=== PATIENT | female | born 1960 | race African-American/Black ===

== ENCOUNTER 2017-02-04 17:45 | Emergency (ER) | payer OTHER ==
[~2017-02-04] VITALS: Ht 167.6 cm; Wt 117.6 kg
[~2017-02-04 17:45] MED LIST: DICL50TA2 PO; EPIP0.3I IM; FURO1TAB62 PO; GABA600T PO; Glucose test strips; HYDR200T42 PO; LISI2.5T3 PO; LORC10TA24 PO; MELO-1 PO; METF1000 PO; PHEN1TAB84 PO; ROBA750T PO; TRAM50TA PO; [UNRECOGNIZED DRUG - SUPPLY]; glucometer
[2017-02-04 19:16] VITALS: BP 132/79; PULSE 101; RESP 20; TEMP 98.5; O2SAT 97
[2017-02-04] MEDS ORDERED: ADIP37.55 PO (19:24)
[2017-02-04] MEDS ORDERED: AMIT100T2 PO (19:25)
[2017-02-04] MEDS ORDERED: AMIT10TA6 PO (19:25)
[2017-02-04] MEDS ORDERED: PLAQ200T PO (19:25)
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
[2017-02-04] MEDS ORDERED: DEXAMETHASONE SOD PHOS 4 MG/ML VIAL IM ONE (20:30)
[2017-02-04] MEDS ORDERED: ORPHENADRINE INJ 60 MG/2 ML AMP IM ONE (20:30)
[2017-02-04] MEDS ORDERED: ROBA750T PO (20:31)
[2017-02-04] MEDS ORDERED: DICL50TA PO (20:31)
[2017-02-22] MEDS ORDERED: METF1000 PO (14:01)
[2017-02-22] MEDS ORDERED: MELO-1 PO (14:01)
[2017-03-21] MEDS ORDERED: ROBA750T PO (11:24)
[2017-04-06] MEDS ORDERED: ROBA750T PO (16:57)
== END 2017-02-04 20:40 | disposition home or self-care (01) ==
LOC: PHEFT 17:45
DX: M54.16 Radiculopathy, lumbar region (principal); G89.29 Other chronic pain
CPT/HCPCS: 96372; 99284; J1100; J2360

== ENCOUNTER → 2017-02-23 | Outpatient (CLI) | payer OTHER ==
[~2017-02-23] VITALS: Ht 167.6 cm; Wt 114.5 kg
[~2017-02-23] MED LIST changes: +ADIP37.55 PO; +AMIT10TA6 PO; +CHLORHEXIDINE GLUCONATE 2 % 1 PACK (2 CLOTHS) TOPICAL PRN; -DICL50TA2 PO; +DO NOT ADM ANY ANTICOAGULANT DRUGS PRN; -EPIP0.3I IM; -FURO1TAB62 PO; -Glucose test strips; -HYDR200T42 PO; +INSULIN HUMAN REGULAR 1,000 UNITS/10 ML VIAL SQ PRN; +LACTATED RINGER'S 1000 ML IV PRN; -LISI2.5T3 PO; -LORC10TA24 PO; +METOPROLOL TARTRATE 25 MG TAB PO PRN; -PHEN1TAB84 PO; +PLAQ200T PO; +POVIDONE IODINE 5% (ANTISEPSIS KIT) 4 APPLICATIONS EACH NARE PRN; +PROPOFOL 200 MG/20 ML AMP IV ONE; +SODIUM CHLORID 0.9% 500 ML IV PRN; -TRAM50TA PO; -[UNRECOGNIZED DRUG - SUPPLY]; -glucometer
[2017-02-23 09:05] VITALS: BP 151/84; PULSE 71; RESP 18; TEMP 97.7; O2SAT 97
--- NOTE | 2017-02-23 12:33 | GIPROC ---
[facility] [address] [facility]. [facility], [address] COLONOSCOPY PROCEDURE REPORT EXAM DATE: 02/23/2017 PATIENT NAME: Randa Cabrera MR #: [id number] BIRTHDATE: 1960 ENDOSCOPIST: Derek Joy MD ORDER #: [id number] TWISTER DOFFER: Josep Castillo and Khushboo Alvarez STATUS: outpatient INDICATIONS: The patient is a 56 yr old female here for a colonoscopy due to personal history of adenomatous polyps. PROCEDURE PERFORMED: colonoscopy MEDICATIONS: Per Anesthesia. PREP QUALITY: excellent ESTIMATED BLOOD LOSS: None CONSENT: The patient understands the risks and benefits of the procedure and understands that these risks include, but are not limited to: sedation, allergic reaction, infection, perforation and/or bleeding. Alternative means of evaluation and treatment include, among others: physical exam, x-rays, and/or surgical intervention. The patient elects to proceed with this endoscopic procedure. medical equipment was checked for proper function. Hand hygiene and appropriate measures for infection prevention was taken. After the risks, benefits and alternatives of the procedure were thoroughly explained, Informed consent was verified, confirmed and timeout was successfully executed by the treatment team. A digital exam was performed and revealed no abnormalities of the rectum The Pentax [id number] endoscope was introduced through the anus and advanced to the cecum, which was identified by both the appendix and ileocecal valve. The instrument was then slowly withdrawn as the colon was fully examined. COLON FINDINGS: The colonic mucosa appeared normal. Retroflexion was performed and was normal The scope was then completely withdrawn from the patient and the procedure terminated. PROCEDURE WITHDRAWAL TIME:7minutes ADVERSE EVENTS: There were no complications. IMPRESSIONS: Normal exam. RECOMMENDATIONS: Resume prior diet/medications. RECALL: Return 5 years Colonoscopy Derek Joy MD eSigned: Derek Joy MD 02/23/2017 12:33 PM cc:
[2017-02-23 12:35] VITALS: BP 132/84; PULSE 74; RESP 18; TEMP 97.7; O2SAT 97
--- NOTE | 2017-02-23 16:45 | EKG ---
Date Performed: 02/23/2017 Time Performed: 09:40:11 PTAGE: 56 years EKG: Sinus rhythm POSSIBLE LEFT ATRIAL ENLARGEMENT LOW QRS VOLTAGE IN PRECORDIAL LEADS POSSIBLE RIGHT VENTRICULAR COND UCTION DELAY BORDERLINE ECG NO PREVIOUS TRACING DOCTOR: Mackenzie Frost Interpretating Date/Time 02/23/2017 16:40:00
== END ==
LOC: HEND 08:59
DX: Z12.11 Encounter for screening for malignant neoplasm of colon (principal); Z86.010 Personal history of colon polyps; R94.31 Abnormal electrocardiogram [ECG] [EKG]
CPT/HCPCS: 00810; 45378; 93005; J7120

== ENCOUNTER 2017-05-30 18:33 | Emergency (ER) | payer OTHER ==
[~2017-05-30 18:33] MED LIST changes: -CHLORHEXIDINE GLUCONATE 2 % 1 PACK (2 CLOTHS) TOPICAL PRN; -DO NOT ADM ANY ANTICOAGULANT DRUGS PRN; -INSULIN HUMAN REGULAR 1,000 UNITS/10 ML VIAL SQ PRN; -LACTATED RINGER'S 1000 ML IV PRN; -MELO-1 PO; +MELO15TA20 PO; -METOPROLOL TARTRATE 25 MG TAB PO PRN; -POVIDONE IODINE 5% (ANTISEPSIS KIT) 4 APPLICATIONS EACH NARE PRN; -PROPOFOL 200 MG/20 ML AMP IV ONE; -SODIUM CHLORID 0.9% 500 ML IV PRN
[2017-05-30 18:34] VITALS: BP 160/90; PULSE 102; RESP 18; TEMP 98.8; O2SAT 99
[2017-05-30] MEDS ORDERED: AMIT25TA9 PO (19:47)
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
[2017-05-30] MEDS ORDERED: ORPHENADRINE INJ 60 MG/2 ML AMP IM ONE (20:45)
[2017-05-30] MEDS ORDERED: KETOROLAC TROMETHAMINE 60 MG/2 ML (IM) VIAL IM ONE (20:45)
== END 2017-05-30 21:27 | disposition home or self-care (01) ==
LOC: NEPK 18:33
DX: M54.31 Sciatica, right side (principal); I10 Essential (primary) hypertension; E78.00 Pure hypercholesterolemia, unspecified; J45.909 Unspecified asthma, uncomplicated; Z79.899 Other long term (current) drug therapy; Z88.0 Allergy status to penicillin; Z88.5 Allergy status to narcotic agent; Z88.2 Allergy status to sulfonamides; Z88.8 Allergy status to other drugs, medicaments and biological substances
CPT/HCPCS: 96372; 99284; J1885; J2360

== ENCOUNTER 2017-09-30 18:11 | Emergency (ER) | payer OTHER ==
[~2017-09-30] VITALS: Ht 167.6 cm; Wt 125.5 kg
[~2017-09-30 18:11] MED LIST changes: -AMIT10TA6 PO; +AMIT25TA9 PO; +LISI2.5T3 PO
[2017-09-30 18:21] VITALS: BP 149/79; PULSE 149; RESP 18; TEMP 98.1; O2SAT 100
== END 2017-09-30 19:38 | disposition left against medical advice (07) ==
LOC: NED 18:11
DX: R10.9 Unspecified abdominal pain (principal); Z53.21 Procedure and treatment not carried out due to patient leaving prior to being seen by health care provider
CPT/HCPCS: 99281

== ENCOUNTER 2017-09-30 19:04 | Emergency (ER) | payer OTHER ==
[~2017-09-30] VITALS: Ht 167.6 cm; Wt 126.8 kg
[2017-09-30 19:07] VITALS: BP 160/94; PULSE 100; RESP 18; TEMP 98.6; O2SAT 99
[2017-09-30] MEDS ORDERED: SODIUM CHLOR 0.9% 1000 ML INJ 1,000 ML IV SCH (19:23)
[2017-09-30] MEDS ORDERED: ONDANSETRON HCL 4 MG/2 ML VIAL IVP ONE (19:30)
[2017-09-30] MEDS ORDERED: MORPHINE SULFATE 2 MG/ML SYRINGE IV PUSH ONE (19:30)
[2017-09-30] MEDS ORDERED: SODIUM CHLORIDE 0.9% FLUSH 10 ML FLUSH IV FLUSH PRN (19:30)
--- NOTE | 2017-09-30 19:33 | PD ---
HPI Chief Complaint: flank pain Time Seen by Provider: 19:15 Travel History International Travel<30 days: No Contact w/Intl Traveler<30days: No Traveled to known affect area: No History of Present Illness HPI Patient is a 56-year-old female presents the emergency room with complaints of right-sided flank pain. Patient reports that she has history of chronic low back pain, patient reports that for the past week, she has been having pain to the right groin radiates to her right flank. Patient reports that her symptoms have been intermittent in nature, reports today, symptoms have increased. Reports that when she has these symptoms, symptoms are moderate to severe in nature. Patient denies any history of kidney stones, denies any dysuria, hematuria, urinary urgency or frequency. Patient reports history of oophorectomy with bilateral salpingectomy in the past. Denies any fever or chills, denies any nausea or vomiting, denies any constipation diarrhea. Denies any trauma to the abdomen. PFSH Past Medical History Blood Disorders: No Cancer: No Cardiovascular Problems: Yes (HTN) High Cholesterol: Yes Chemotherapy: No Diabetes: Yes Diminished Hearing: No Endocrine: No Gastrointestinal Disorders: Yes GERD: Yes Genitourinary: No Headaches: Yes Hepatitis: No Hiatal Hernia: No Hypertension: Yes Immune Disorder: No Musculoskeletal: Yes (chronic back pain, OA) Neurologic: Yes Psychiatric: No Reproductive: No Respiratory: Yes (ASTHMA) Immunizations Current: Yes Migraines: Yes Radiation Therapy: No Thyroid Disease: No Menopausal: Yes : 2 Para: 1 Past Surgical History Abdominal Surgery: No AICD: No Arteriovenous Shunt: No Cardiac Surgery: No Ear Surgery: No Endocrine Surgery: No Eye Surgery: No Genitourinary Surgery: No Gynecologic Surgery: Yes (PARTIAL HYSTERECTOMY) Hysterectomy: Yes Insulin Pump: No Joint Replacement: No Oral Surgery: No Pacemaker: No Thoracic Surgery: No Other Surgery: Yes (BILATERAL KNEE ORTHOSCOPIC SURGERY) Social History Alcohol Use: No Tobacco Use: No Substance Use: No Allergies-Medications (Allergen,Severity, Reaction): Coded Allergies: acetaminophen (Verified Allergy, Severe, 06/17/17) divalproex sodium (Verified Allergy, Severe, 06/17/17) duloxetine (Verified Allergy, Severe, Anaphylaxis, 06/17/17) hydrocodone (Verified Allergy, Severe, 06/17/17) propoxyphene (Verified Allergy, Severe, 06/17/17) sumatriptan (Verified Allergy, Severe, "CAN'T TAKE", 06/17/17) zolmitriptan (Verified Allergy, Severe, NEURO DEFICITS, 06/17/17) tramadol (Verified Allergy, Intermediate, nausea and vomiting, 06/17/17) sulfamethoxazole (Verified Allergy, Mild, 06/17/17) trimethoprim (Verified Allergy, Mild, 06/17/17) penicillin G (Verified Adverse Reaction, Mild, PT SAID IT DOES NOT WORK FOR HER, 06/17/17) Uncoded Allergies: EXCEDRIN (Allergy, Severe, STOMACH UPSET, 02/09/12) PENICILLIN (Allergy, Unknown, told her body rejects penicillin, 02/23/17) Reported Meds & Prescriptions Reported Meds & Active Scripts Active Robaxin (Methocarbamol) 750 Mg Tab 750 Mg PO TID Meloxicam 15 Mg Tab 15 Mg PO DAILY Metformin (Metformin HCl) 1,000 Mg Tab 1,000 Mg PO DAILY With a meal Adipex-P (Phentermine HCl) 37.5 Mg Tab 1 Tab PO DAILY Gabapentin 600 Mg Tab 900 Mg PO HS Reported Lisinopril 2.5 Mg Tab 2.5 Mg PO DAILY Amitriptyline (Amitriptyline HCl) 25 Mg Tab 25 Mg PO HS Plaquenil (Hydroxychloroquine Sulfate) 200 Mg Tab 200 Mg PO BID Take with food Review of Systems General / Constitutional: No: Fever, Chills Eyes: No: Visual changes HENT: No: Headaches Cardiovascular: No: Chest Pain or Discomfort Respiratory: No: Shortness of Breath Gastrointestinal: Positive: Nausea, Vomiting, Abdominal Pain Genitourinary: Positive: Flank Pain, No: Dysuria Musculoskeletal: No: Pain Skin: No Rash Neurologic: No: Weakness Psychiatric: No: Depression Endocrine: No: Polydipsia Hematologic/Lymphatic: No: Easy Bruising Physical Exam Narrative GENERAL: moderate distress SKIN: Focused skin assessment warm/dry. HEAD: Atraumatic. Normocephalic. EYES: Pupils equal and round. No scleral icterus. No injection or drainage. ENT: No nasal bleeding or discharge. Mucous membranes pink and moist. NECK: Trachea midline. No JVD. CARDIOVASCULAR: Regular rate and rhythm. No murmur appreciated. RESPIRATORY: No accessory muscle use. Clear to auscultation. Breath sounds equal bilaterally. GASTROINTESTINAL: Abdomen soft, mild tenderness to RLQ, nondistended. Hepatic and splenic margins not palpable. MUSCULOSKELETAL: No obvious deformities. No clubbing. No cyanosis. No edema. Right sided flank pain NEUROLOGICAL: Awake and alert. No obvious cranial nerve deficits. Motor grossly within normal limits. Normal speech. PSYCHIATRIC: Appropriate mood and affect; insight and judgment normal. Data Data Last Documented VS Vital Signs Date Time Temp Pulse Resp B/P (MAP) Pulse Ox O2 Delivery O2 Flow Rate FiO2 09/30/17 20:10 89 18 131/64 (86) 98 Room Air 09/30/17 19:07 98.6 Orders Orders Complete Blood Count With Diff (09/30/17 19:23) Comprehensive Metabolic Panel (09/30/17:) Lipase (09/30/17:) Prothrombin Time / Inr (Pt) (09/30/17:23) Act Partial Throm Time (Ptt) (09/30/17:23) Urinalysis - C+S If Indicated (09/30/17:23) Ct Abd/Pel W/O Iv Contrast (09/30/17 19:23) Iv Access Insert/Monitor (09/30/17 19:23) Ecg Monitoring (09/30/17:23) Oximetry (09/30/17:23) NPO (09/30/17:23) Ondansetron Inj (Zofran Inj) (09/30/17 19:30) Sodium Chlor 0.9% 1000 Ml Inj (Ns 1000 M (09/30/17 19:23) Sodium Chloride 0.9% Flush (Ns Flush) (09/30/17 19:30) Morphine Inj (Morphine Inj) (09/30/17 19:30) Labs Laboratory Tests Test 09/30/17 19:40 White Blood Count 7.2 TH/MM3 Red Blood Count 4.34 MIL/MM3 Hemoglobin 11.8 GM/DL Hematocrit 36.3 % Mean Corpuscular Volume 83.7 FL Mean Corpuscular Hemoglobin 27.3 PG Mean Corpuscular Hemoglobin Concent 32.6 % Red Cell Distribution Width 14.6 % Platelet Count 280 TH/MM3 Mean Platelet Volume 8.2 FL Neutrophils (%) (Auto) 50.5 % Lymphocytes (%) (Auto) 34.6 % Monocytes (%) (Auto) 8.2 % Eosinophils (%) (Auto) 4.1 % Basophils (%) (Auto) 2.6 % Neutrophils # (Auto) 3.6 TH/MM3 Lymphocytes # (Auto) 2.5 TH/MM3 Monocytes # (Auto) 0.6 TH/MM3 Eosinophils # (Auto) 0.3 TH/MM3 Basophils # (Auto) 0.2 TH/MM3 CBC Comment DIFF FINAL Differential Comment Prothrombin Time 9.7 SEC Prothromb Time International Ratio 1.0 RATIO Activated Partial Thromboplast Time 24.8 SEC Urine Color YELLOW Urine Turbidity CLEAR Urine pH 6.0 Urine Specific [place] GREATER/EQUAL 1.030 Urine Protein NEG mg/dL Urine Glucose (UA) NEG mg/dL Urine Ketones TRACE mg/dL Urine Occult Blood NEG Urine Nitrite NEG Urine Bilirubin NEG Urine Urobilinogen 0.2 MG/DL Urine Leukocyte Esterase NEG Urine RBC 0-2 /hpf Urine WBC 3-5 /hpf Urine Squamous Epithelial Cells > 8 /hpf Urine Bacteria FEW /hpf Microscopic Urinalysis Comment CULT NOT INDICATED Blood Urea Nitrogen 17 MG/DL Creatinine 1.10 MG/DL Random Glucose 136 MG/DL Total Protein 7.5 GM/DL Albumin 3.4 GM/DL Calcium Level 8.6 MG/DL Alkaline Phosphatase 130 U/L Aspartate Amino Transf (AST/SGOT) 15 U/L Alanine Aminotransferase (ALT/SGPT) 22 U/L Total Bilirubin 0.2 MG/DL Sodium Level 139 MEQ/L Potassium Level 3.9 MEQ/L Chloride Level 104 MEQ/L Carbon Dioxide Level 29.5 MEQ/L Anion Gap 6 MEQ/L Estimat Glomerular Filtration Rate 62 ML/MIN Lipase 133 U/L [facility] Medical Decision Making Medical Screen Exam Complete: Yes Emergency Medical Condition: Yes Medical Record Reviewed: Yes Interpretation(s) Vital Signs Date Time Temp Pulse Resp B/P (MAP) Pulse Ox O2 Delivery O2 Flow Rate FiO2 09/30/17 19:07 98.6 100 18 160/94 (116) 99 Differential Diagnosis Kidney stone, appendicitis, UTI, pyelonephritis, muscle skeletal pain Narrative Course 56 year old female who presents to the ER with c/o of intermittent right sided groin pain which radiates to her flank. Patient reports that onset of symptoms have been ongoing for past week. During the course of the patients emergency department visit, the patients history, examination, and differential diagnosis were reviewed with the patient. The patient was placed on a compliance monitor with oximetry and frequent blood pressure monitoring. The patient had an IV access obtained and blood work sent for analysis. The patient was initially provided IVF, IVF morphine (patient tolerated this in the past), IV zofran. The patients laboratory studies were reviewed and remarkable for: Laboratory Tests Test 09/30/17 19:40 White Blood Count 7.2 TH/MM3 (4.0-11.0) Red Blood Count 4.34 MIL/MM3 (4.00-5.30) Hemoglobin 11.8 GM/DL (11.6-15.3) Hematocrit 36.3 % (35.0-46.0) Mean Corpuscular Volume 83.7 FL (80.0-100.0) Mean Corpuscular Hemoglobin 27.3 PG (27.0-34.0) Mean Corpuscular Hemoglobin Concent 32.6 % (32.0-36.0) Red Cell Distribution Width 14.6 % (11.6-17.2) Platelet Count 280 TH/MM3 (150-450) Mean Platelet Volume 8.2 FL (7.0-11.0) Neutrophils (%) (Auto) 50.5 % (16.0-70.0) Lymphocytes (%) (Auto) 34.6 % (9.0-44.0) Monocytes (%) (Auto) 8.2 % (0.0-8.0) Eosinophils (%) (Auto) 4.1 % (0.0-4.0) Basophils (%) (Auto) 2.6 % (0.0-2.0) Neutrophils # (Auto) 3.6 TH/MM3 (1.8-7.7) Lymphocytes # (Auto) 2.5 TH/MM3 (1.0-4.8) Monocytes # (Auto) 0.6 TH/MM3 (0-0.9) Eosinophils # (Auto) 0.3 TH/MM3 (0-0.4) Basophils # (Auto) 0.2 TH/MM3 (0-0.2) CBC Comment DIFF FINAL Differential Comment Prothrombin Time 9.7 SEC (9.8-11.6) Prothromb Time International Ratio 1.0 RATIO Activated Partial Thromboplast Time 24.8 SEC (24.3-30.1) Urine Color YELLOW (YELLW/STRAW) Urine Turbidity CLEAR (CLEAR) Urine pH 6.0 (5.0-8.5) Urine Specific [place] GREATER/EQUAL 1.030 Urine Protein NEG mg/dL (NEG-TRACE) Urine Glucose (UA) NEG mg/dL (NEG) Urine Ketones TRACE mg/dL (NEG) Urine Occult Blood NEG (NEG) Urine Nitrite NEG (NEG) Urine Bilirubin NEG (NEG) Urine Urobilinogen 0.2 MG/DL (LESS THAN Urine Leukocyte Esterase NEG (NEG) Urine RBC 0-2 /hpf (0-3) Urine WBC 3-5 /hpf (0-5) Urine Squamous Epithelial Cells > 8 /hpf (0-5) Urine Bacteria FEW /hpf (NONE) Microscopic Urinalysis Comment CULT NOT INDICATED Blood Urea Nitrogen 17 MG/DL (7-18) Creatinine 1.10 MG/DL (0.50-1.00) Random Glucose 136 MG/DL (74-106) Total Protein 7.5 GM/DL (6.4-8.2) Albumin 3.4 GM/DL (3.4-5.0) Calcium Level 8.6 MG/DL (8.5-10.1) Alkaline Phosphatase 130 U/L (45-117) Aspartate Amino Transf (AST/SGOT) 15 U/L (15-37) Alanine Aminotransferase (ALT/SGPT) 22 U/L (10-53) Total Bilirubin 0.2 MG/DL (0.2-1.0) Sodium Level 139 MEQ/L (136-145) Potassium Level 3.9 MEQ/L (3.5-5.1) Chloride Level 104 MEQ/L (98-107) Carbon Dioxide Level 29.5 MEQ/L (21.0-32.0) Anion Gap 6 MEQ/L (5-15) Estimat Glomerular Filtration Rate 62 ML/MIN (>89) Lipase 133 U/L (73-393) Radiology studies were reviewed and remarkable for: Last Impressions Abdomen/Pelvis CT 09/30/171922 Signed Impressions: Service Date/Time: Saturday, September 30, 2017 19:46 - CONCLUSION: Negative for an acute process. Probable left renal cyst incompletely evaluated. Michael Alexander MD FACR Labs are reviewed, UA with trace ketones. CT of abdomen and pelvis shows 1 cm low-density lesion in the midportion of the kidney probably a cyst, there is no acute process seen. Patient was reevaluated, patient is feeling much better at this time. Abdomen is soft, nontender, nondistended, no peritoneal signs. I reviewed all labs and all studies with patient in detail, there is no obvious etiology for patient's abdominal pain. Signs and symptoms of acute abdomen reviewed with patient, she will return to emergency room as needed. A copy of her CT report was given to her discharge and she will need to follow-up with all incidental findings from today. Diagnosis Primary Impression: Abdominal pain Qualified Codes: R10.31 - Right lower quadrant pain Patient Instructions: General Instructions Additional Instructions: Please follow up with your primary care doctor in 2-3 days Return to the ER if symptoms worsen or progress or if you develop any fever or chills Return to the ER as needed Disposition: 01 DISCHARGE HOME Condition: Stable Alexandria Stovall DO Sep 30, 2017 19:33
[2017-09-30 19:44] LABS: BILIRUBIN, URINE NEG (NEG); BLOOD, URINE NEG (NEG); GLUCOSE,URINE NEG (NEG); KETONE, URINE TRACE mg/dL (NEG); NITRITE,URINE NEG (NEG); URINE COLOR YELLOW (YELLW/STRAW); URINE LEUKOCYTE ESTERASE NEG (NEG)
[2017-09-30 19:47] LABS: AUTOMATED NEUTROPHIL # 3.6 TH/MM3 (1.8-7.7); BASOPHIL # 0.2 TH/MM3 (0-0.2); BASOPHIL % 2.6 % (0.0-2.0); EOSINOPHIL # 0.3 TH/MM3 (0-0.4); EOSINOPHIL % 4.1 % (0.0-4.0); HEMATOCRIT 36.3 % (35.0-46.0); HEMOGLOBIN 11.8 GM/DL (11.6-15.3); LYMPH % 34.6 % (9.0-44.0); LYMPHOCYTE # 2.5 TH/MM3 (1.0-4.8); MEAN CELL VOLUME 83.7 FL (80.0-100.0); MEAN CORPUSCULAR HEMOGLOBIN 27.3 PG (27.0-34.0); MEAN CORPUSCULAR HGB CONC 32.6 % (32.0-36.0); MEAN PLATELET VOLUME 8.2 FL (7.0-11.0); MONO % 8.2 % (0.0-8.0); MONOCYTE # 0.6 TH/MM3 (0-0.9); NEUT % 50.5 % (16.0-70.0); PLATELET COUNT 280 TH/MM3 (150-450); RED BLOOD COUNT 4.34 MIL/MM3 (4.00-5.30); RED CELL DISTRIBUTION WIDTH 14.6 % (11.6-17.2); WHITE BLOOD COUNT 7.2 TH/MM3 (4.0-11.0)
[2017-09-30 19:53] LABS: BACTERIA, URINE FEW /hpf; CHLORIDE 104 MEQ/L (98-107); RBC, URINE 0-2 /hpf (0-3); SODIUM (NA) 139 MEQ/L (136-145); SQUAMOUS EPITHELIAL CELL URINE > 8 /hpf (0-5)
[2017-09-30 19:56] LABS: CALCIUM 8.6 MG/DL (8.5-10.1)
[2017-09-30 19:57] LABS: ALBUMIN 3.4 GM/DL (3.4-5.0); BICARBONATE 29.5 MEQ/L (21.0-32.0); BLOOD UREA NITROGEN 17 MG/DL (7-18); GLUCOSE,RANDOM 136 MG/DL (74-106)
[2017-09-30 19:58] LABS: PROTHROMBIN TIME - PATIENT 9.7 SEC (9.8-11.6)
[2017-09-30 20:00] LABS: ALT (GPT) 22 U/L (10-53); AST (GOT) 15 U/L (15-37); GLOMERULAR FILTRATION RATE 62 ML/MIN (>89)
[2017-09-30 20:01] LABS: TOTAL BILIRUBIN ADULT 0.2 MG/DL (0.2-1.0); TOTAL PROTEIN 7.5 GM/DL (6.4-8.2)
[2017-09-30 20:03] LABS: ALKALINE PHOSPHATASE 130 U/L (45-117)
[2017-09-30 20:10] VITALS: BP 131/64; PULSE 89; RESP 18; O2SAT 98
--- NOTE | 2017-09-30 20:42 | RADRPT ---
EXAM DATE/TIME: 09/30/2017 19:46 [facility] COMPARISON: No previous studies available for comparison. INDICATIONS : Right flank pain. ORAL CONTRAST: No oral contrast ingested. RADIATION DOSE: 27.10 CTDIvol (mGy) MEDICAL HISTORY : Hypertension. Gastroesophageal reflux disease. Diabetes. IBS. SURGICAL HISTORY : Hysterectomy. ENCOUNTER: Initial ACUITY: 1 week PAIN SCALE: 7/10 LOCATION: Right flank TECHNIQUE: Volumetric scanning of the abdomen and pelvis was performed. Using automated exposure control and ad justment of the mA and/or kV according to patient size, radiation dose was kept as low as reasonably achievable to obtain optimal diagnostic quality images. DICOM format image data is available electro nically for review and comparison. FINDINGS: LOWER LUNGS: The visualized lower lungs are clear. LIVER: Homogeneous density without lesion. There is no dilation of the biliary tree. No calcified gallston es. SPLEEN: Normal size without lesion. PANCREAS: Within normal limits. KIDNEYS: Normal in size and shape. 1 cm low-density lesion midportion left kidney probably cyst incompletely evaluated on today's study. ADRENAL GLANDS: Normal adrenal glands VASCULAR: No significant calcification BOWEL/MESENTERY: No inflammatory changes ABDOMINAL WALL: Within normal limits. RETROPERITONEUM: There is no lymphadenopathy. BLADDER: No wall thickening. INGUINAL: No adenopathy MUSCULOSKELETAL: Mild degenerative changes CONCLUSION: Negative for an acute process. Probable left renal cyst incompletely evaluated. Michael Alexander MD FACR on September 30, 2017 at 20:37 Board Certified Radiologist. This report was verified electronically.
== END 2017-09-30 21:08 | disposition home or self-care (01) ==
LOC: PHED 19:04
DX: R10.31 Right lower quadrant pain (principal); R11.2 Nausea with vomiting, unspecified; M54.5 Low back pain; G89.29 Other chronic pain; I10 Essential (primary) hypertension; E78.00 Pure hypercholesterolemia, unspecified; E11.9 Type 2 diabetes mellitus without complications; K21.9 Gastro-esophageal reflux disease without esophagitis; J45.909 Unspecified asthma, uncomplicated
CPT/HCPCS: 74176; 80053; 81001; 83690; 85025; 85610; 85730; 96361; 96374; 96375; 99284; J2270; J2405; J7030

== ENCOUNTER 2017-11-03 17:41 | Observation (INO) | payer OTHER ==
[~2017-11-03] VITALS: Ht 167.6 cm; Wt 130.6 kg
[2017-11-03 17:43] VITALS: BP 142/98; PULSE 96; RESP 20; TEMP 98.5; O2SAT 98
--- NOTE | 2017-11-03 18:05 | PD ---
HPI Chief Complaint: Chest Pain Time Seen by Provider: 17:51 Travel History International Travel<30 days: No Contact w/Intl Traveler<30days: No Traveled to known affect area: No History of Present Illness HPI 56 years old female complains of chest pressure, shortness of breath, lower extremity swelling. Patient noticed increasing bilateral lower extremity swelling for the past 3 weeks. Patient states that she started having shortness of breath for the past 2 days. Patient states that she has substernal chest pressure intermittently for the past 2 weeks. Patient states that the pressure radiates to the neck. Patient states that the chest pressure is not associate with exertion. Patient denies any coughing congestion. Patient denies nausea diaphoresis. Patient denies any fever chills. Patient denies history of CAD. Patient denies history of CHF. Patient has history of hypertension, type 2 diabetes. Patient denies history of hyperlipidemia. Patient is non-smoker. Patient has family history of heart disease. Patient also has history of mixed connective tissue disease. Patient on Plaquenil. On a scale of 1-10 pressures of 4. PFSH Past Medical History Blood Disorders: No Cancer: No Cardiovascular Problems: Yes (HTN) High Cholesterol: Yes Chemotherapy: No Diabetes: Yes (PRE) Diminished Hearing: No Endocrine: No Gastrointestinal Disorders: Yes (IBS, GERD) GERD: Yes Genitourinary: No Headaches: Yes Hepatitis: No Hiatal Hernia: No Hypertension: Yes Immune Disorder: No Musculoskeletal: Yes (chronic back pain, OA) Neurologic: Yes Psychiatric: No Reproductive: No Respiratory: Yes (ASTHMA) Immunizations Current: Yes Migraines: Yes Radiation Therapy: No Thyroid Disease: No ?: Not Menopausal: Yes : 2 Para: 1 Past Surgical History Abdominal Surgery: No AICD: No Arteriovenous Shunt: No Cardiac Surgery: No Ear Surgery: No Endocrine Surgery: No Eye Surgery: No Genitourinary Surgery: No Gynecologic Surgery: Yes (PARTIAL HYSTERECTOMY) Hysterectomy: Yes Insulin Pump: No Joint Replacement: No Oral Surgery: No Pacemaker: No Thoracic Surgery: No Other Surgery: Yes (BILATERAL KNEE ARTHOSCOPIC SURGERY) Social History Alcohol Use: No Tobacco Use: No Substance Use: No Allergies-Medications (Allergen,Severity, Reaction): Coded Allergies: acetaminophen (Verified Allergy, Severe, 11/03/17) divalproex sodium (Verified Allergy, Severe, 11/03/17) duloxetine (Verified Allergy, Severe, Anaphylaxis, 11/03/17) hydrocodone (Verified Allergy, Severe, 11/03/17) propoxyphene (Verified Allergy, Severe, 11/03/17) sumatriptan (Verified Allergy, Severe, "CAN'T TAKE", 11/03/17) zolmitriptan (Verified Allergy, Severe, NEURO DEFICITS, 11/03/17) tramadol (Verified Allergy, Intermediate, nausea and vomiting, 11/03/17) sulfamethoxazole (Verified Allergy, Mild, 11/03/17) trimethoprim (Verified Allergy, Mild, 11/03/17) penicillin G (Verified Adverse Reaction, Mild, PT SAID IT DOES NOT WORK FOR HER, 11/03/17) Uncoded Allergies: EXCEDRIN (Allergy, Severe, STOMACH UPSET, 02/09/12) PENICILLIN (Allergy, Unknown, told her body rejects penicillin, 02/23/17) Reported Meds & Prescriptions Reported Meds & Active Scripts Active Robaxin (Methocarbamol) 750 Mg Tab 750 Mg PO TID Meloxicam 15 Mg Tab 15 Mg PO DAILY Metformin (Metformin HCl) 1,000 Mg Tab 1,000 Mg PO DAILY With a meal Gabapentin 600 Mg Tab 900 Mg PO HS Reported Lisinopril 2.5 Mg Tab 2.5 Mg PO DAILY Amitriptyline (Amitriptyline HCl) 25 Mg Tab 25 Mg PO HS Plaquenil (Hydroxychloroquine Sulfate) 200 Mg Tab 200 Mg PO BID Take with food Review of Systems General / Constitutional: No: Fever Eyes: No: Visual changes HENT: No: Headaches Cardiovascular: Positive: Chest Pain or Discomfort Respiratory: Positive: Shortness of Breath Gastrointestinal: No: Abdominal Pain Genitourinary: No: Dysuria Musculoskeletal: Positive: Edema, No: Pain Skin: No Rash Neurologic: No: Weakness Psychiatric: No: Depression Endocrine: No: Polydipsia Hematologic/Lymphatic: No: Easy Bruising Physical Exam Narrative GENERAL: Well-nourished, well-developed patient. SKIN: Focused skin assessment warm/dry. HEAD: Normocephalic. EYES: No scleral icterus. No injection or drainage. NECK: Supple, trachea midline. No JVD or lymphadenopathy. CARDIOVASCULAR: Regular rate and rhythm without murmurs, gallops, or rubs. RESPIRATORY: Breath sounds equal bilaterally. No accessory muscle use. GASTROINTESTINAL: Abdomen soft, non-tender, nondistended. MUSCULOSKELETAL: No cyanosis. Patient had +1-+2 pitting edema lower extremity. Mild tenderness on palpation bilateral calf area. No redness no heat. Negative Homans sign. BACK: Nontender without obvious deformity. No CVA tenderness. Neurologic exam normal. Data Data Last Documented VS Vital Signs Date Time Temp Pulse Resp B/P (MAP) Pulse Ox O2 Delivery O2 Flow Rate FiO2 11/03/17 17:57 20 97 Room Air 11/03/17 17:43 98.5 96 142/98 (113) Orders Orders Electrocardiogram (11/03/17 17:57) Complete Blood Count With Diff (11/03/17 17:57) Comprehensive Metabolic Panel (11/03/17 17:57) Creatine Kinase (Cpk) (11/03/17 17:57) Troponin I (11/03/17 17:57) B-Type Natriuretic Peptide (11/03/17 17:57) Prothrombin Time / Inr (Pt) (11/03/17 17:57) Act Partial Throm Time (Ptt) (11/03/17 17:57) Urinalysis - C+S If Indicated (11/03/17 17:57) Thyroid Stimulating Hormone (11/03/17 17:57) Chest, Single Ap (11/03/17 17:57) Iv Access Insert/Monitor (11/03/17 17:57) Ecg Monitoring (11/03/17 17:57) Oximetry (11/03/17 17:57) Us Leg Venous Doppler Bilat (11/03/17 17:57) MDM Medical Decision Making Medical Screen Exam Complete: Yes Emergency Medical Condition: Yes Interpretation(s) Last Impressions Lower Extremity Ultrasound 11/03/171756 Signed Impressions: Service Date/Time: October 18:08 - CONCLUSION: No DVT in either lower extremity. Vivek Lorenzo MD Chest X-Ray 11/03/171756 Signed Impressions: Service Date/Time: October 18:26 - CONCLUSION: 1. Slight interstitial prominence. Vivek Lorenzo MD Differential Diagnosis Differential diagnosis including musculoskeletal, angina, KS, PE, pneumothorax, dependent edema, CHF. Narrative Course 56 years old female with chest discomfort, shortness of breath, bilateral lower extremity edema. Skip Del Cid MD November 03, 2017 18:05
--- NOTE | 2017-11-03 18:38 | RADRPT ---
EXAM DATE/TIME: 11/03/2017 18:08 [facility] COMPARISON: No previous studies available for comparison. INDICATIONS : Bilateral leg swelling. MEDICAL HISTORY : Diabetic. Hypertension. SURGICAL HISTORY : Bilateral carpal tunnel. Bilateral arthroscopy knees. Partial hysterectomy. ENCOUNTER: Initial ACUITY: 2 weeks PAIN SCORE: 6/10 LOCATION: Bilateral leg. TECHNIQUE: Venous ultrasound of the left and right leg was performed from the inguinal ligament to the proximal calf. Real-time, color Doppler and spectral tracing, compression and augmentation techniques were us ed. FINDINGS: RIGHT LEG: There is normal compressibility of the deep venous system from the inguinal region to the proximal ca lf. No echogenic clot is seen in the lumen of the common femoral, femoral, popliteal, and posterior tibial veins. There is a normal response of the venous system to proximal and distal augmentation an d respiration. LEFT LEG: There is normal compressibility of the deep venous system from the inguinal region to the proximal ca lf. No echogenic clot is seen in the lumen of the common femoral, femoral, popliteal, and posterior tibial veins. There is a normal response of the venous system to proximal and distal augmentation an d respiration. CONCLUSION: No DVT in either lower extremity. Vivek Lorenzo MD on November 03, 2017 at 18:35 Board Certified Radiologist. This report was verified electronically.
--- NOTE | 2017-11-03 18:40 | RADRPT ---
EXAM DATE/TIME: 11/03/2017 18:26 [facility] COMPARISON: No previous studies available for comparison. INDICATIONS : Chest pain and tightness for four days with leg swelling. MEDICAL HISTORY : Hypertension. Gastroesophageal reflux disease. Diabetes. IBS. SURGICAL HISTORY : Hysterectomy. ENCOUNTER: Initial ACUITY: 4 - 6 days PAIN SCORE: 4/10 LOCATION: Bilateral chest FINDINGS: A single view of the chest demonstrates the lungs to be symmetrically aerated without evidence of mas s, infiltrate or effusion. Slight interstitial prominence. The cardiomediastinal contours are unrema rkable. Osseous structures are intact. CONCLUSION: 1. Slight interstitial prominence. Vivek Lorenzo MD on November 03, 2017 at 18:36 Board Certified Radiologist. This report was verified electronically.
[2017-11-03 18:54] VITALS: RESP 18; O2SAT 97
[2017-11-03 18:57] VITALS: BP 131/81; PULSE 88; O2SAT 95
[2017-11-03 19:01] LABS: AUTOMATED NEUTROPHIL # 3.2 TH/MM3 (1.8-7.7); BASOPHIL % 0.3 % (0.0-2.0); EOSINOPHIL # 0.3 TH/MM3 (0-0.4); EOSINOPHIL % 4.3 % (0.0-4.0); HEMATOCRIT 33.9 % (35.0-46.0); HEMOGLOBIN 11.3 GM/DL (11.6-15.3); LYMPH % 34.1 % (9.0-44.0); LYMPHOCYTE # 2.1 TH/MM3 (1.0-4.8); MEAN CELL VOLUME 83.6 FL (80.0-100.0); MEAN CORPUSCULAR HEMOGLOBIN 27.9 PG (27.0-34.0); MEAN CORPUSCULAR HGB CONC 33.4 % (32.0-36.0); MEAN PLATELET VOLUME 8.4 FL (7.0-11.0); MONO % 10.2 % (0.0-8.0); MONOCYTE # 0.6 TH/MM3 (0-0.9); NEUT % 51.1 % (16.0-70.0); PLATELET COUNT 275 TH/MM3 (150-450); RED BLOOD COUNT 4.05 MIL/MM3 (4.00-5.30); RED CELL DISTRIBUTION WIDTH 14.6 % (11.6-17.2); WHITE BLOOD COUNT 6.2 TH/MM3 (4.0-11.0)
[2017-11-03 19:07] LABS: CHLORIDE 107 MEQ/L (98-107); SODIUM (NA) 142 MEQ/L (136-145)
[2017-11-03 19:10] LABS: CALCIUM 8.4 MG/DL (8.5-10.1)
[2017-11-03 19:11] LABS: ALBUMIN 3.3 GM/DL (3.4-5.0); BICARBONATE 29.4 MEQ/L (21.0-32.0); BLOOD UREA NITROGEN 11 MG/DL (7-18); GLUCOSE,RANDOM 95 MG/DL (74-106)
[2017-11-03 19:14] LABS: ALT (GPT) 24 U/L (10-53); AST (GOT) 15 U/L (15-37); GLOMERULAR FILTRATION RATE 69 ML/MIN (>89)
[2017-11-03 19:15] LABS: TOTAL BILIRUBIN ADULT 0.3 MG/DL (0.2-1.0)
[2017-11-03 19:17] LABS: ALKALINE PHOSPHATASE 109 U/L (45-117); TOTAL PROTEIN 6.8 GM/DL (6.4-8.2)
[2017-11-03 19:19] LABS: TROPONIN I LESS THAN 0.02 NG/ML (0.02-0.05)
[2017-11-03] MEDS ORDERED: SODIUM CHLORIDE 0.9% FLUSH 10 ML FLUSH IV FLUSH PRN (20:00)
--- NOTE | 2017-11-03 20:01 | PD ---
Physical Exam Date Seen by Provider: November 03, 2017 Time Seen by Provider: 19:00 Narrative Patient initially seen and evaluated by Dr. Del Cid, please see his notes for further details. Awaiting lab work, ultrasound is negative and chest x-ray was unremarkable, planning for chest pain center. EKG shows NSR, no ST elevation or depression, and no arrhythmias. No significant T-wave inversions. Laboratory Tests Test 11/03/17 18:50 Hemoglobin 11.3 GM/DL (11.6-15.3) Hematocrit 33.9 % (35.0-46.0) Monocytes (%) (Auto) 10.2 % (0.0-8.0) Eosinophils (%) (Auto) 4.3 % (0.0-4.0) Albumin 3.3 GM/DL (3.4-5.0) Calcium Level 8.4 MG/DL (8.5-10.1) Estimat Glomerular Filtration Rate 69 ML/MIN (>89) Total Creatine Kinase 200 U/L (26-192) Troponin I LESS THAN 0.02 NG/ML Last 24 hours Impressions Lower Extremity Ultrasound 11/03/171756 Signed Impressions: Service Date/Time: October 18:08 - CONCLUSION: No DVT in either lower extremity. Vivek Lorenzo MD Chest X-Ray 11/03/171756 Signed Impressions: Service Date/Time: October 18:26 - CONCLUSION: 1. Slight interstitial prominence. Vivek Lorenzo MD Cardiac enzymes are negative. And ultrasound was negative. BNP was normal. At this point, plan would be to admit the patient to chest pain center for further evaluation. Case was discussed with Dr. Jolly for admission. Data Data Last Documented VS Vital Signs Date Time Temp Pulse Resp B/P (MAP) Pulse Ox O2 Delivery O2 Flow Rate FiO2 11/03/17 18:57 88 131/81 (98) 95 Room Air 11/03/17 18:54 18 11/03/17 17:43 98.5 Orders Orders Electrocardiogram (11/03/17 17:57) Complete Blood Count With Diff (11/03/17 17:57) Comprehensive Metabolic Panel (11/03/17 17:57) Creatine Kinase (Cpk) (11/03/17 17:57) Troponin I (11/03/17 17:57) B-Type Natriuretic Peptide (11/03/17 17:57) Prothrombin Time / Inr (Pt) (11/03/17 17:57) Act Partial Throm Time (Ptt) (11/03/17 17:57) Urinalysis - C+S If Indicated (11/03/17 17:57) Thyroid Stimulating Hormone (11/03/17 17:57) Chest, Single Ap (11/03/17 17:57) Iv Access Insert/Monitor (11/03/17 17:57) Ecg Monitoring (11/03/17 17:57) Oximetry (11/03/17 17:57) Us Leg Venous Doppler Bilat (11/03/17 17:57) CKMB (11/03/17 18:50) CKMB% (11/03/17 18:50) Admit Order (Ed Use Only) (11/03/17 19:58) Activity Bed Rest With Brp (11/03/17 19:58) Vital Signs (Adult) Q4H (11/03/17 19:58) Cardiac Rhythm .As Directed (11/03/17 19:58) Notify Dr: Other .PRN (11/03/17 19:58) Notify Dr. Parameters (11/03/17 19:58) Resp Oxygen Nasal Cannula (11/03/17 ) Diet Heart Healthy (11/04/17 Breakfast) Ckmb (Isoenzyme) Profile (11/03/17 19:58) Ckmb (Isoenzyme) Profile (11/03/17 22:58) Troponin I (11/03/17 19:58) Troponin I (11/03/17 22:58) Electrocardiogram (11/03/17 19:58) Electrocardiogram (11/03/17 22:58) ^ Obtain (11/03/17 19:58) Sodium Chloride 0.9% Flush (Ns Flush) (11/03/17 20:00) Sodium Chloride 0.9% Flush (Ns Flush) (11/03/17 21:00) Nitroglycerin 2% Oint (Nitroglycerin 2% (11/04/17 00:00) Aspirin (Aspirin) (11/04/17 09:00) Head Baker / Telemetry PETER.Q8H (11/03/17 19:58) Labs Laboratory Tests Test 11/03/17 18:50 White Blood Count 6.2 TH/MM3 Red Blood Count 4.05 MIL/MM3 Hemoglobin 11.3 GM/DL Hematocrit 33.9 % Mean Corpuscular Volume 83.6 FL Mean Corpuscular Hemoglobin 27.9 PG Mean Corpuscular Hemoglobin Concent 33.4 % Red Cell Distribution Width 14.6 % Platelet Count 275 TH/MM3 Mean Platelet Volume 8.4 FL Neutrophils (%) (Auto) 51.1 % Lymphocytes (%) (Auto) 34.1 % Monocytes (%) (Auto) 10.2 % Eosinophils (%) (Auto) 4.3 % Basophils (%) (Auto) 0.3 % Neutrophils # (Auto) 3.2 TH/MM3 Lymphocytes # (Auto) 2.1 TH/MM3 Monocytes # (Auto) 0.6 TH/MM3 Eosinophils # (Auto) 0.3 TH/MM3 Basophils # (Auto) 0.0 TH/MM3 CBC Comment DIFF FINAL Differential Comment Prothrombin Time 10.0 SEC Prothromb Time International Ratio 1.0 RATIO Activated Partial Thromboplast Time 25.2 SEC Blood Urea Nitrogen 11 MG/DL Creatinine 1.00 MG/DL Random Glucose 95 MG/DL Total Protein 6.8 GM/DL Albumin 3.3 GM/DL Calcium Level 8.4 MG/DL Alkaline Phosphatase 109 U/L Aspartate Amino Transf (AST/SGOT) 15 U/L Alanine Aminotransferase (ALT/SGPT) 24 U/L Total Bilirubin 0.3 MG/DL Sodium Level 142 MEQ/L Potassium Level 3.6 MEQ/L Chloride Level 107 MEQ/L Carbon Dioxide Level 29.4 MEQ/L Anion Gap 6 MEQ/L Estimat Glomerular Filtration Rate 69 ML/MIN Total Creatine Kinase 200 U/L Creatine Kinase MB 1.4 NG/ML Creatine Kinase MB % 0.7 % Troponin I LESS THAN 0.02 NG/ML B-Type Natriuretic Peptide 23 PG/ML Thyroid Stimulating Hormone 3rd Gen 2.350 uIU/ML [facility] Medical Record Reviewed: Yes Supervised Visit with ODALIS: No Diagnosis Primary Impression: Chest pain Admitting Information Admitting Physician Requests: Admit Avila Forrest MD November 03, 2017 20:01
[2017-11-03 20:12] VITALS: BP 134/72; PULSE 16; PULSE 85; RESP 16; O2SAT 96
[2017-11-03] MEDS ORDERED: SODIUM CHLORIDE 0.9% FLUSH 10 ML FLUSH IV FLUSH SCH (21:00)
[2017-11-03 22:25] VITALS: BP 173/88; PULSE 71; RESP 20; TEMP 96.3; O2SAT 100
[2017-11-04 00:20] VITALS: O2SAT 98
[2017-11-04] MEDS: NITROGLYCERIN 2% OINT 1 GM PACKET TOP SCH ×3 (00:37→08:01)
[2017-11-04 00:52] VITALS: BP 141/82; PULSE 80; RESP 20; TEMP 96.7; O2SAT 98
[2017-11-04 01:20] VITALS: PULSE 75
[2017-11-04 01:37] LABS: TROPONIN I LESS THAN 0.02 NG/ML (0.02-0.05)
[2017-11-04 04:49] VITALS: BP 131/70; PULSE 86; RESP 20; TEMP 96.5; O2SAT 95
[2017-11-04] MEDS ORDERED: ACETAMINOPHEN 325 MG TAB PO PRN (07:15)
[2017-11-04 07:57] LABS: BILIRUBIN, URINE NEG (NEG); BLOOD, URINE NEG (NEG); GLUCOSE,URINE NEG (NEG); KETONE, URINE NEG (NEG); NITRITE,URINE NEG (NEG); URINE COLOR YELLOW (YELLW/STRAW); URINE LEUKOCYTE ESTERASE NEG (NEG)
[2017-11-04 08:00] VITALS: BP 101/57; PULSE 87; RESP 19; TEMP 98.5; O2SAT 96; O2SAT 97
[2017-11-04 08:04] LABS: RBC, URINE 0-3 /hpf (0-3); SQUAMOUS EPITHELIAL CELL URINE 0-5 /hpf (0-5)
--- NOTE | 2017-11-04 08:48 | HHI.HP ---
[facility] Non-Staff Admission Diagnosis Chest pain Diagnoses: (1) Chest pain Diagnosis: Principal (2) Dyspnea on exertion Diagnosis: Principal (3) Shortness of breath Diagnosis: Principal Chief Complaint: Shortness of breath, lower extremity edema, chest discomfort Travel History International Travel<30 Days: No Contact w/Intl Traveler <30 Da: No Traveled to Known Affected Are: No History of Present Illness This is a 56-year-old female with known history of hypertension, obesity with BMI 46.5, mixed connective tissue disorder, arthritis, diabetes who presented to the hospital for evaluation of shortness of breath and chest discomfort. Patient states that over the last 3 weeks she has noticed that she has had increased edema of the lower extremities. She contributed this to a change in her meloxicam, so she has not been taking the medication. However she continued to have lower extremity edema. Proximally 4 days ago she started developing shortness of breath, dyspnea on exertion, orthopnea. She states that whenever she got up to walk she got short of breath and during that time she experienced a chest pressure which he describes a 8/10 on a pain scale. She indicates when she sits down the discomfort would go away and she was able to breathe better. She indicates that the discomfort in her chest did radiate up into the left side of her neck. She denied any nausea, vomiting, diaphoresis , lightheadedness, dizziness. Patient states that she does have allergies, however she has not been experiencing any fever, chills, cough, congestion. Workup in the emergency department was performed which did not indicate any signs of congestive heart failure, chest x-ray was clear, BNP was normal. ER physician recommended patient be observed in chest pain center for further evaluation and management. Patient does have increased risk factors to include age, body habitus, hypertension, diabetes, family history of heart disease. Patient denies any previous cardiac workup. Review of Systems Respiratory: COMPLAINS OF: Shortness of breath Cardiovascular: COMPLAINS OF: Chest pain, Dyspnea on Exertion, Lower Extremity Edema, Orthopnea Except as stated in HPI: all other systems reviewed are Neg Past Family Social History Past Medical History Hypertension Hyperlipidemia Diabetes Mixed connective tissue disorder Sciatica Past Surgical History Partial hysterectomy Bilateral carpal tunnel surgery Bilateral knee surgeries Reported Medications Reported Meds & Active Scripts Active Robaxin (Methocarbamol) 750 Mg Tab 750 Mg PO TID Meloxicam 15 Mg Tab 15 Mg PO DAILY Metformin (Metformin HCl) 1,000 Mg Tab 1,000 Mg PO DAILY With a meal Gabapentin 600 Mg Tab 900 Mg PO HS Reported Lisinopril 2.5 Mg Tab 2.5 Mg PO DAILY Amitriptyline (Amitriptyline HCl) 25 Mg Tab 25 Mg PO HS Plaquenil (Hydroxychloroquine Sulfate) 200 Mg Tab 200 Mg PO BID Take with food Allergies: Coded Allergies: acetaminophen (Verified Allergy, Severe, 11/03/17) divalproex sodium (Verified Allergy, Severe, 11/03/17) duloxetine (Verified Allergy, Severe, Anaphylaxis, 11/03/17) hydrocodone (Verified Allergy, Severe, 11/03/17) propoxyphene (Verified Allergy, Severe, 11/03/17) sumatriptan (Verified Allergy, Severe, "CAN'T TAKE", 11/03/17) zolmitriptan (Verified Allergy, Severe, NEURO DEFICITS, 11/03/17) tramadol (Verified Allergy, Intermediate, nausea and vomiting, 11/03/17) sulfamethoxazole (Verified Allergy, Mild, 11/03/17) trimethoprim (Verified Allergy, Mild, 11/03/17) penicillin G (Verified Adverse Reaction, Mild, PT SAID IT DOES NOT WORK FOR HER, 11/03/17) Uncoded Allergies: EXCEDRIN (Allergy, Severe, STOMACH UPSET, 02/09/12) PENICILLIN (Allergy, Unknown, told her body rejects penicillin, 02/23/17) Family History Reviewed is significant for mother having congestive heart failure. Social History Patient denies any tobacco, alcohol or illicit drug Physical Exam Vital Signs Vital Signs Date Time Temp Pulse Resp B/P (MAP) Pulse Ox O2 Delivery O2 Flow Rate FiO2 11/04/17 08:00 98.5 87 19 101/57 (72) 97 11/04/17 04:49 96.5 86 20 131/70 (90) 95 11/04/17 01:20 75 11/04/17 00:52 96.7 80 20 141/82 (101) 98 11/04/17 00:20 98 21 5/10/18 22:25 96.3 71 20 173/88 (116) 100 11/03/17 22:00 11/03/17 20:12 85 16 134/72 (92) 96 Room Air 11/03/17 18:57 88 131/81 (98) 95 Room Air 11/03/17 18:54 18 97 Room Air 11/03/17 17:57 20 97 Room Air 11/03/17 17:43 98.5 96 20 142/98 (113) 98 Physical Exam GENERAL: Well-developed, well-nourished, in no acute distress. alert and orientated HEENT: Head is normocephalic without any lesions or masses noted. Facial features are symmetric. Eyes: Pupils equal round reactive to light. Extraocular muscles are intact. Conjunctivae were clear. Oropharyngeal: Pharynx without any erythema edema. Tongue is midline without deviation. Buccal mucosa is moist without any masses or lesions NECK: Supple without any masses. Trachea midline no deviation. No JVD, no bruits are appreciated CARDIAC: Regular rhythm, regular rate. S1/S2 are heard. No murmurs gallops or rubs. LUNGS: Clear to auscultation bilaterally. No wheeze, rhonchi or rales. No use of accessory muscles on inspiration or expiration. ABDOMEN: Soft, nontender. Nondistended. Bowel sounds heard in all 4 quadrants. No organomegaly or masses. Negative rebound, negative guarding EXTREMITIES: No edema, pulses are equal bilaterally. No cyanosis or clubbing NEUROLOGY: Mood and affect appear appropriate. Cranial nerves II through XII grossly intact. Muscle strength 5/5 in upper and lower extremities bilaterally. Deep tendon reflexes are 2+ in upper and lower extremities bilaterally. Laboratory Laboratory Tests Test 11/03/17 18:50 11/03/17 21:40 11/04/17 00:35 11/04/17 07:45 White Blood Count 6.2 Red Blood Count 4.05 Hemoglobin 11.3 Hematocrit 33.9 Mean Corpuscular Volume 83.6 Mean Corpuscular Hemoglobin 27.9 Mean Corpuscular Hemoglobin Concent 33.4 Red Cell Distribution Width 14.6 Platelet Count 275 Mean Platelet Volume 8.4 Neutrophils (%) (Auto) 51.1 Lymphocytes (%) (Auto) 34.1 Monocytes (%) (Auto) 10.2 Eosinophils (%) (Auto) 4.3 Basophils (%) (Auto) 0.3 Neutrophils # (Auto) 3.2 Lymphocytes # (Auto) 2.1 Monocytes # (Auto) 0.6 Eosinophils # (Auto) 0.3 Basophils # (Auto) 0.0 CBC Comment DIFF FINAL Differential Comment Prothrombin Time 10.0 Prothromb Time International Ratio 1.0 Activated Partial Thromboplast Time 25.2 Blood Urea Nitrogen 11 Creatinine 1.00 Random Glucose 95 Total Protein 6.8 Albumin 3.3 Calcium Level 8.4 Alkaline Phosphatase 109 Aspartate Amino Transf (AST/SGOT) 15 Alanine Aminotransferase (ALT/SGPT) 24 Total Bilirubin 0.3 Sodium Level 142 Potassium Level 3.6 Chloride Level 107 Carbon Dioxide Level 29.4 Anion Gap 6 Estimat Glomerular Filtration Rate 69 Total Creatine Kinase 200 183 181 Creatine Kinase MB 1.4 1.4 1.4 Creatine Kinase MB % 0.7 Troponin I LESS THAN 0.02 LESS THAN 0.02 LESS THAN 0.02 B-Type Natriuretic Peptide 23 Thyroid Stimulating Hormone 3rd Gen 2.350 Urine Collection Type CLEAN CATCH Urine Color YELLOW Urine Turbidity CLEAR Urine pH 6.0 Urine Specific [place] LESS/EQUAL 1.005 Urine Protein NEG Urine Glucose (UA) NEG Urine Ketones NEG Urine Occult Blood NEG Urine Nitrite NEG Urine Bilirubin NEG Urine Urobilinogen 0.2 Urine Leukocyte Esterase NEG Urine RBC 0-3 Urine Squamous Epithelial Cells 0-5 Microscopic Urinalysis Comment CULT NOT INDICATED Urine Collection Time 07:45 Result Diagram: 11/03/17184911/03/171849 Imaging Last Impressions Lower Extremity Ultrasound 11/03/171756 Signed Impressions: Service Date/Time: October 18:08 - CONCLUSION: No DVT in either lower extremity. Vivek Lorenzo MD Chest X-Ray 11/03/171756 Signed Impressions: Service Date/Time: October 18:26 - CONCLUSION: 1. Slight interstitial prominence. MD Mirtha Mckeoni VTE Risk Assessment Lia VTE Risk Assessment: Mod/High Risk (score >= 2) Earlrini Risk Assessment Model Point Value = 1 Point Value = 2 Point Value = 3 Point Value = 5 Age 41-60 Minor surgery BMI > 25 kg/m2 Swollen legs Varicose veins or History of unexplained or recurrent spontaneous Oral contraceptives or hormone replacement Sepsis (< 1 month) Serious lung disease, including pneumonia (< 1 month) Abnormal pulmonary function Acute myocardial infarction Congestive heart failure (< 1 month) History of inflammatory bowel disease Medical patient at bed rest Age 61-74 Arthroscopic surgery Major open surgery (> 45 min) Laparoscopic surgery (> 45 min) Malignancy Confined to bed (> 72 hours) Immobilizing plaster cast Central venous access Age >= 75 History of VTE Family history of VTE Factor V Leiden Prothrombin [id number] Lupus anticoagulant Anticardiolipin antibodies Elevated serum homocysteine Heparin-induced thrombocytopenia Other congenital or acquired thrombophilia Stroke (< 1 month) Elective arthroplasty Hip, pelvis, or leg fracture Acute spinal cord injury (< 1 month) Prophylaxis Regimen Total Risk Factor Score Risk Level Prophylaxis Regimen 0-1 Low Early ambulation 2 Moderate Order ONE of the following: *Sequential Compression Device (SCD) *Heparin 5000 units SQ BID 3-4 Higher Order ONE of the following medications: *Heparin 5000 units SQ TID *Enoxaparin/Lovenox 40 mg SQ daily (WT < 150 kg, CrCl > 30 mL/min) *Enoxaparin/Lovenox 30 mg SQ daily (WT < 150 kg, CrCl > 10-29 mL/min) *Enoxaparin/Lovenox 30 mg SQ BID (WT < 150 kg, CrCl > 30 mL/min) AND/OR *Sequential Compression Device (SCD) 5 or more Highest Order ONE of the following medications: *Heparin 5000 units SQ TID (Preferred with Epidurals) *Enoxaparin/Lovenox 40 mg SQ daily (WT < 150 kg, CrCl > 30 mL/min) *Enoxaparin/Lovenox 30 mg SQ daily (WT < 150 kg, CrCl > 10-29 mL/min) *Enoxaparin/Lovenox 30 mg SQ BID (WT < 150 kg, CrCl > 30 mL/min) AND *Sequential Compression Device (SCD) Assessment and Plan Assessment and Plan 56-year-old female who presented with 2 week history of lower extremity edema, four-day history of dyspnea on exertion, chest pressure, orthopnea Chest pain -Patient does have increased risk factors to include age, body habitus, hypertension, hyper lipidemia, diabetes, family history of heart disease -Patient has been ruled out for acute coronary event with serial cardiac enzymes that are negative -Serial EKGs do show sinus arrhythmia, patient does confirm that she has been diagnosed with this in the past. There have been no changes -Myocardial perfusion study was performed and indicated no signs of ischemia, low risk -Continue aspirin, nitroglycerin as needed -Monitor telemetry Shortness of breath, orthopnea, dyspnea on exertion -Could be a component of possible underlying ischemia -Chest x-ray does not indicate any pulmonary edema, effusion but does indicate slight interstitial prominence -BNP was normal Diabetes -Diabetic diet -Accu-Cheks with sliding scale insulin Arthritis, sciatica, mixed connective tissue disorder -Continue home medications DVT prevention -Sequential compression devices Discharge disposition Discharge home in stable condition Activity: Ad brittnee. Diet: Diabetic diet Medication per medication reconciliation Follow-up with primary medical doctor in 1 week Arnoldo Rodriguez November 04, 2017 08:48
[2017-11-04] MEDS ORDERED: ASPIRIN 325 MG TAB PO SCH (09:00)
[2017-11-04] MEDS ORDERED: GLUCAGON 1 MG/ML VIAL OTHER PRN (09:00)
[2017-11-04] MEDS ORDERED: LISINOPRIL 5 MG TAB PO SCH (09:00)
[2017-11-04] MEDS ORDERED: METHOCARBAMOL 500 MG TAB PO SCH (09:00)
[2017-11-04] MEDS ORDERED: HYDROXYCHLOROQUINE SULFATE 200 MG TAB PO SCH (09:00)
[2017-11-04] MEDS ORDERED: DEXTROSE 50% IN WATER 50 ML VIAL(D50) IV PUSH PRN (09:00)
[2017-11-04] MEDS ORDERED: PILL SPLITTER OTHER PRN (09:15)
[2017-11-04] MEDS ORDERED: REGADENOSON INJ 0.4 MG/5 ML SYR IV ONE (10:12)
--- NOTE | 2017-11-04 11:09 | RADRPT ---
EXAM DATE/TIME: 11/04/2017 09:54 [place] COMPARISON: No previous studies available for comparison. INDICATIONS : Mid chest pain with shortness of breath for two weeks. Angina. DOSE: 35.0 mCi Tc99m Myoview at stress. 11.0 mCi Tc99m Myoview at rest. 0.4 mg Lexiscan STRESS SYMPTOMS: Shortness of breath. EJECTION FRACTION: 68% MEDICAL HISTORY : Gastroesophageal reflux disease. Hypertension. SURGICAL HISTORY : Hysterectomy. ENCOUNTER: Initial ACUITY: 2 weeks PAIN SCALE: 4/10 LOCATION: Midsternal chest TECHNIQUE: The patient underwent pharmacologic stress with infusion of prescribed dose. Continuous ECG tracing was monitored during stress. Gated SPECT imaging was performed after stress and conventional SPECT i maging was performed at rest. The examination was performed on a SPECT/CT scanner, both attenuation and non-corrected datasets were reviewed. FINDINGS: DISTRIBUTION: The maximum perfused segment at stress is in the septal wall. PERFUSION STUDY: The pattern of perfusion at stress is within normal limits. GATED STUDY: There is intact wall motion and thickening without hypokinetic or dyskinetic segments. CONCLUSION: Normal examination. RISK CATEGORY: Low (<1% Annual Mortality Rate) Eriberto Marie MD on November 04, 2017 at 11:05 Board Certified Radiologist. This report was verified electronically.
--- NOTE | 2017-11-04 11:57 | HHI.DCPOC ---
Discharge Care Plan Diagnosis: (1) Chest pain Goals to Promote Your Health * To prevent worsening of your condition and complications * To maintain your health at the optimal level Directions to Meet Your Goals Take your medications as prescribed Follow your dietary instruction Follow activity as directed Keep your appointments as scheduled Take your immunizations and boosters as scheduled If your symptoms worsen call your PCP, if no PCP go to Urgent Care Center or Emergency Room Smoking is Dangerous to Your Health. Avoid second hand smoke Call the 24-hour hour crisis hotline for domestic abuse at Arnoldo Rodriguez November 04, 2017 11:56
[2017-11-04 12:00] VITALS: BP 167/83; PULSE 79; RESP 20; TEMP 97.8; O2SAT 96
[2017-11-04] MEDS ORDERED: INSULIN ASPART SUPPLEMENTAL SCALE SQ SCH (12:00)
--- NOTE | 2017-11-04 14:08 | TR ---
Date Performed: 11/04/2017 Time Performed: 10:22:08 DOCTOR: Edwar Painter DRUG LIST: CLINICAL HISTORY: ANGINA REASON FOR TEST: Angina REASON FOR ENDING: OBSERVATION: CONCLUSION: Lexiscan stress test was performed under standard four minute protocol. Radionucl[place] e was injected one minute prior to ending the test. No electrocardiographic abormalities were present to suggest ischemia. Nuclear imaging and interpretation are pending. COMMENTS:
[2017-11-04] MEDS ORDERED: GABAPENTIN 300 MG CAP PO SCH (21:00)
[2017-11-04] MEDS ORDERED: AMITRIPTYLINE HCL 25 MG TAB PO SCH (21:00)
--- NOTE | 2017-11-05 08:29 | EKG ---
Date Performed: 11/04/2017 Time Performed: 00:28:10 PTAGE: 56 years EKG: Sinus rhythm WITH MARKED SINUS ARRHYTHMIA POSSIBLE RIGHT VENTRICULAR CONDUCTION DELAY NONSPECIFIC T-WAVE ABNORMAL ITY BORDERLINE ECG PREVIOUS TRACING : 11/03/2017 21.32 DOCTOR: Sarai Landaverde Interpretating Date/Time 11/05/2017 08:27:22
--- NOTE | 2017-11-05 08:34 | EKG ---
Date Performed: 11/03/2017 Time Performed: 21:32:40 PTAGE: 56 years EKG: Sinus rhythm LOW QRS VOLTAGE IN PRECORDIAL LEADS POSSIBLE RIGHT VENTRICULAR CONDUCTION DELAY NONSPECIFIC T-WAVE A BNORMALITY BORDERLINE ECG PREVIOUS TRACING : 11/03/2017 18.14 DOCTOR: Sarai Landaverde Interpretating Date/Time 11/05/2017 08:31:55
--- NOTE | 2017-11-05 08:38 | EKG ---
Date Performed: 11/03/2017 Time Performed: 18:14:31 PTAGE: 56 years EKG: Sinus rhythm WITH SINUS ARRHYTHMIA LOW QRS VOLTAGE IN PRECORDIAL LEADS POSSIBLE RIGHT VENTRICULAR CONDUCTION SHELDON Y NONSPECIFIC T-WAVE ABNORMALITY BORDERLINE ECG PREVIOUS TRACING : 02/23/2017 09.40 DOCTOR: Sarai Landaverde Interpretating Date/Time 11/05/2017 08:35:46
== END 2017-11-04 13:26 | disposition home or self-care (01) ==
LOC: PHED 17:41 → PHEDA 19:59 → PH3A 22:08
PROVIDERS: ADMIT Hospitalist; ATTEND Hospitalist
DX: R07.9 Chest pain, unspecified (principal); R06.09 Other forms of dyspnea; R06.02 Shortness of breath; R60.0 Localized edema; I10 Essential (primary) hypertension; E66.9 Obesity, unspecified; M19.90 Unspecified osteoarthritis, unspecified site; E11.9 Type 2 diabetes mellitus without complications; E78.5 Hyperlipidemia, unspecified; M54.30 Sciatica, unspecified side; Z79.899 Other long term (current) drug therapy; Z79.84 Long term (current) use of oral hypoglycemic drugs; Z82.49 Family history of ischemic heart disease and other diseases of the circulatory system; M79.89 Other specified soft tissue disorders; M35.1 Other overlap syndromes; K58.9 Irritable bowel syndrome, unspecified; K21.9 Gastro-esophageal reflux disease without esophagitis; R94.31 Abnormal electrocardiogram [ECG] [EKG]; I49.8 Other specified cardiac arrhythmias
CPT/HCPCS: 71045; 78452; 80053; 81001; 82550; 82552; 83880; 84443; 84484; 85025; 85610; 85730; 93005; 93017; 93970; 99285; A9502; G0378; J2785